=== PATIENT | male | born 1970 | race Caucasian/White ===

== ENCOUNTER 2021-07-17 10:53 | Emergency (ER) | payer BC ==
[2021-07-17 11:05] VITALS: TEMP 98
--- NOTE | 2021-07-17 11:24 | XR ---
EXAMINATION TYPE: XR finger LT DATE OF EXAM: 07/17/2021 COMPARISON: NONE HISTORY: Contusion injury with pain. TECHNIQUE: 3 views left second finger. FINDINGS: There is overlying gauze and/or bandage material making evaluation slightly suboptimal for soft tissue foreign body but no distinct radiodense soft tissue foreign body is clearly identified. N o acute fracture or dislocation the second finger left hand. Joint spaces are maintained. IMPRESSION: As above.
[2021-07-17] MEDS ORDERED: LIDOCAINE 1% INJ 10MG/ML (5 ML VIAL-PF) SQ STA (11:56)
[2021-07-17] MEDS ORDERED: DIPH,PERTUS(ACELL)TETVAC-LF 0.5 ML VIAL IM ONE (11:56)
--- NOTE | 2021-07-17 13:04 | ED ---
General Adult HPI - General Chief complaint: Extremity Injury, Upper Stated complaint: L Hand Injury Time Seen by Provider: 07/17/21 11:47 Source: patient, RN notes reviewed Mode of arrival: ambulatory Limitations: no limitations - History of Present Illness Initial comments: 50-year-old male presents to the emergency room for a chief complaint of lacer ation of the left second digit. Patient was using a spring-loaded crank for a semi and cut his finger. Patient denies any difficulty flexing the left 2nd digit. Patient is not up-to-date on tetanus. Patient has no other complaints at this time including shortness of breath, chest pain, abdominal pain, nausea or vomiting, headache, or visual changes. - Related Data Previous Rx's Medication Instructions Recorded Cephalexin [Keflex] 500 mg PO Q6HR 7 Days #28 cap 07/17/21 Allergies Allergy/AdvReac Type Severity Reaction Status Date / Time No Known Allergies Allergy Verified 07/17/21 12:12 Review of Systems ROS Statement: Those systems with pertinent positive or pertinent negative responses have been documented in the HPI. ROS Other: All systems not noted in ROS Statement are negative. Past Medical History Past Medical History: Hypertension Past Surgical History: No Surgical Hx Reported Past Psychological History: No Psychological Hx Reported Smoking Status: Former smoker Past Alcohol Use History: Occasional Past Drug Use History: None Reported General Exam Limitations: no limitations General appearance: alert, in no apparent distress Head exam: Present: atraumatic Eye exam: Present: normal appearance ENT exam: Present: normal exam, mucous membranes moist Neck exam: Present: normal inspection Respiratory exam: Absent: respiratory distress Extremities exam: Present: full ROM (full rom L second digit including flexion of the DIP joint.), normal capillary refill (cap refill < 2 seconds left second digit), other (3 cm laceration to the palmar aspect of the left second digit distal middle phanx. no obvious tendon injury) Course Vital Signs 07/17/21 07/17/21 10:59 13:18 Temperature 98.0 F Pulse Rate 63 78 Respiratory 18 20 Rate Blood Pressure 120/78 135/79 O2 Sat by Pulse 95 99 Oximetry Procedures - Laceration Laceration #1 Consent Obtained: verbal consent Indication: laceration Site: hand Size (cm): 3 Description: linear Depth: simple, single layer Anesthetic Used: lidocaine 1% Anesthesia Technique: nerve block Amount (mls): 5 Pre-repair: wound explored, irrigated extensively, deep structures intact Type of Sutures: nylon Size of Sutures: 4-0, 5-0 Number of Sutures: 6 Technique: simple, interrupted Patient Tolerated Procedure: well, no complications Medical Decision Making - Medical Decision Making Vitals are stable. XR not show any foreign material or injury to the bone. Patient was numbed using a digital block. Wound was irrigated thoroughly. 6 sutures were applied. Patient started on antibiotic given depth of wound. Recommend he follow up with orthopedics to evaluate injury although I do not see any evidence of tendon injury at this time. Patient was updated on tetanus and started on antibiotics. He will return here for any worsening symptoms. Disposition Clinical Impression: Laceration Disposition: HOME SELF-CARE Condition: Good Instructions (If sedation given, give patient instructions): Care For Your Stitches (ED), Laceration (ED) Additional Instructions: Take antibiotic as directed. Keep wounds cleaned twice per day. Apply antibiotic ointment at least for the next few days. Return in 10 days for suture removal. Follow up with orthopedics for recheck. Return here for any worsening symptoms. Prescriptions: Cephalexin [Keflex] 500 mg PO Q6HR 7 Days #28 cap Is patient prescribed a controlled substance at d/c from ED?: No Referrals: Avery Cheng MD [Primary Care Provider] - 1-2 days Time of Disposition: 13:01
[2021-07-17 13:19] VITALS: BP 135/79; PULSE 78; RESP 20
== END 2021-07-17 13:19 | disposition home or self-care (01) ==
LOC: EC 10:53
DX: S61.211A Laceration without foreign body of left index finger without damage to nail, initial encounter (principal); I10 Essential (primary) hypertension; Z87.891 Personal history of nicotine dependence; Z23 Encounter for immunization; W26.8XXA Contact with other sharp object(s), not elsewhere classified, initial encounter; Y99.0 Civilian activity done for income or pay
CPT/HCPCS: 73140; 90715; 99283; 90471; 12002; J2001